=== PATIENT | male | born 1950 | race Caucasian/White ===

== ENCOUNTER 2021-06-30 15:55 | Inpatient (IN) ==
[2021-06-30] MEDS ORDERED: Isovue-370 500 ML BOTTLE IVP ONE (16:56)
[2021-06-30] MEDS ORDERED: 0.9 % Sodium Chloride 1,000 ML IVC ONE (16:57)
[2021-06-30] MEDS ORDERED: Cefepime HCl 2,000 MG in 0.9 % Sodium Chloride 10 ML IVP STA (16:57)
[2021-06-30] MEDS ORDERED: MetroNIDAZOLE 500 MG/100 ML 500 MG/100 ML BAG IVPB ONE (16:58)
[2021-06-30] MEDS ORDERED: Vancomycin 1,250 MG/262.5 ML IV.SOLN IVPB ONE (16:58)
[2021-06-30 17:20] LABS: Hematocrit 41.6 % (37.5-50.1); Hemoglobin 14.5 g/dL (12.9-16.9); Mean Corpuscular HGB Conc 34.9 g/dL (31.6-35.5); Mean Corpuscular Hemoglobin 30.3 pg (28.0-33.3); Mean Platelet Volume 9.3 fL (9.4-12.4); Platelet Count 267 K/mcL (140-400); Red Blood Count 4.78 M/mcL (4.19-5.50); Red Cell Distribution Width 11.8 % (11.5-14.5); White Blood Count 20.1 K/mcL (4.3-11.1)
[2021-06-30] MEDS ORDERED: Ondansetron 4 MG/2 ML VIAL IVP ONE (17:25)
[2021-06-30] MEDS ORDERED: *HR* HYDROmorphone (PF) 1 MG/ML SYRINGE IVP STA (17:25)
[2021-06-30 17:40] LABS: Alanine Aminotransferase 19 Units/L (7-52); Albumin 3.6 g/dL (3.5-5.7); Alkaline Phosphatase 108 Units/L (34-104); Aspartate Amino Transferase 16 Units/L (13-39); BUN/Creatinine Ratio 20 (6-26); Bilirubin,Direct 0.7 mg/dL (0.0-0.2); Bilirubin,Indirect 1.2 mg/dL (0.0-1.0); Bilirubin,Total 1.9 mg/dL (0.3-1.0); Blood Urea Nitrogen 17 mg/dL (8-23); Calcium 9.4 mg/dL (8.6-10.3); Carbon Dioxide 25 mEq/L (23-29); Chloride 94 mEq/L (98-107); Globulin 3.7 g/dL (2.4-3.5); Glucose 267 mg/dL (70-105); Osmolality,Calculated 283 (280-300); Potassium 3.6 mEq/L (3.5-5.1); Sodium 131 mEq/L (136-145); Total Protein 7.3 g/dL (6.4-8.9); eGFR For African Americans > 60 (> 60); eGFR For Non-African Americans > 60 (> 60)
[2021-06-30] MEDS ORDERED: Ondansetron ODT 4 MG TAB.RAPDIS SL PRN (19:41)
[2021-06-30] MEDS ORDERED: Acetaminophen 325 MG TABLET PO PRN (19:41)
[2021-06-30] MEDS ORDERED: Naloxone 0.4 MG/ML INJ IVP PRN (19:41)
[2021-06-30] MEDS ORDERED: Melatonin 3 MG TABLET PO PRN (19:41)
[2021-06-30] MEDS ORDERED: D5% in Water 1,000 ML IVC PRN (20:07)
[2021-06-30] MEDS ORDERED: *HR* Dextrose 50 % in Water (Syg) 50 ML SYRINGE IVP PRN (20:07)
[2021-06-30] MEDS ORDERED: Dextrose Gel 15 GM/37.5 ML TUBE PO PRN ×2 (20:07)
[2021-06-30 20:28] LABS: Estimated Average Glucose 194 mg/dl; Hemoglobin A1C 8.4 %
[2021-07-01] MEDS: MetroNIDAZOLE 500 MG/100 ML 500 MG/100 ML BAG IVPB SCH ×5 (00:41→23:53)
[2021-07-01] MEDS: Insulin LISPRO 300 UNITS/3 ML VIAL SUBQ SCH ×5 (00:42→23:54)
[2021-07-01] MEDS: Vancomycin 1,250 MG/262.5 ML IV.SOLN IVPB SCH ×2 (04:33→18:33)
[2021-07-01] MEDS: Cefepime HCl 2,000 MG in 0.9 % Sodium Chloride 10 ML IVP SCH ×3 (04:34→17:29)
[2021-07-01 05:26] LABS: Basophils % 0.2 %; Eosinophils % 0.2 %; Hematocrit 35.2 % (37.5-50.1); Immature Granulocytes % 0.9 % (0-4); Lymphocytes # 1.4 K/mcL (0.6-4.6); Lymphocytes % 8.4 %; Mean Corpuscular HGB Conc 35.8 g/dL (31.6-35.5); Mean Corpuscular Hemoglobin 31.3 pg (28.0-33.3); Mean Corpuscular Volume 87.6 fL (83.0-100.0); Mean Platelet Volume 9.6 fL (9.4-12.4); Monocytes # 1.8 K/mcL (0.0-1.3); Monocytes % 10.7 %; Neutrophils # 13.5 K/mcL (1.6-8.9); Platelet Count 233 K/mcL (140-400); Red Blood Count 4.02 M/mcL (4.19-5.50); Red Cell Distribution Width 11.9 % (11.5-14.5); Segmented Neutrophils % 79.6 %
[2021-07-01 05:28] LABS: Hemoglobin 12.6 g/dL (12.9-16.9)
[2021-07-01 05:34] LABS: INR 1.7; Prothrombin Time 18.9 Seconds (9.4-12.1)
[2021-07-01 05:48] LABS: BUN/Creatinine Ratio 19 (6-26); Blood Urea Nitrogen 16 mg/dL (8-23); Calcium 8.5 mg/dL (8.6-10.3); Carbon Dioxide 25 mEq/L (23-29); Chloride 101 mEq/L (98-107); Glucose 206 mg/dL (70-105); Osmolality,Calculated 285 (280-300); Potassium 3.6 mEq/L (3.5-5.1); Sodium 134 mEq/L (136-145); eGFR For African Americans > 60 (> 60); eGFR For Non-African Americans > 60 (> 60)
[2021-07-01 05:52] LABS: Albumin 3.1 g/dL (3.5-5.7); Bilirubin,Direct 0.6 mg/dL (0.0-0.2); Bilirubin,Indirect 0.8 mg/dL (0.0-1.0); Bilirubin,Total 1.4 mg/dL (0.3-1.0); Total Protein 6.1 g/dL (6.4-8.9)
[2021-07-01] MEDS ORDERED: Lidocaine -MPF 2% 5 ML VIAL ONE (14:08)
[2021-07-01] MEDS ORDERED: *HR* Midazolam HCl 2 MG/2 ML VIAL ONE (14:08)
[2021-07-01] MEDS ORDERED: Clindamycin 900 MG/50 ML 900 MG/50 ML IV.SOLN IVPB ONE (14:12)
[2021-07-01] MEDS ORDERED: *HR* HYDROmorphone PF 0.5 MG/0.5 ML SYRINGE IVP PRN (14:24)
[2021-07-01] MEDS ORDERED: Ondansetron 4 MG/2 ML VIAL ONE (14:55)
[2021-07-01] MEDS: *HR* Heparin 5,000 UNIT/ML VIAL SQ SCH (17:29)
[2021-07-01] MEDS: Ringers Solution, Lactated 1,000 ML IVC SCH (19:09)
[2021-07-02] MEDS: Cefepime HCl 2,000 MG in 0.9 % Sodium Chloride 10 ML IVP SCH ×4 (04:01→23:01)
[2021-07-02] MEDS: MetroNIDAZOLE 500 MG/100 ML 500 MG/100 ML BAG IVPB SCH ×4 (04:02→23:00)
[2021-07-02 06:19] LABS: Basophils # 0.1 K/mcL (0.0-0.2); Basophils % 0.4 %; Eosinophils # 0.1 K/mcL (0.0-0.6); Eosinophils % 0.7 %; Hematocrit 35.5 % (37.5-50.1); Hemoglobin 12.5 g/dL (12.9-16.9); Immature Granulocytes % 1.3 % (0-4); Lymphocytes # 1.5 K/mcL (0.6-4.6); Lymphocytes % 9.1 %; Mean Corpuscular HGB Conc 35.2 g/dL (31.6-35.5); Mean Corpuscular Hemoglobin 31.3 pg (28.0-33.3); Mean Platelet Volume 9.6 fL (9.4-12.4); Monocytes # 1.5 K/mcL (0.0-1.3); Monocytes % 9.4 %; Neutrophils # 12.9 K/mcL (1.6-8.9); Platelet Count 253 K/mcL (140-400); Red Blood Count 3.99 M/mcL (4.19-5.50); Red Cell Distribution Width 11.9 % (11.5-14.5); Segmented Neutrophils % 79.1 %; White Blood Count 16.3 K/mcL (4.3-11.1)
[2021-07-02] MEDS: Insulin LISPRO 300 UNITS/3 ML VIAL SUBQ SCH ×4 (06:29→21:51)
[2021-07-02] MEDS: *HR* Heparin 5,000 UNIT/ML VIAL SQ SCH ×2 (06:29→16:54)
[2021-07-02] MEDS: Vancomycin 1,250 MG/262.5 ML IV.SOLN IVPB SCH (06:30)
[2021-07-02 06:31] LABS: BUN/Creatinine Ratio 19 (6-26); Blood Urea Nitrogen 17 mg/dL (8-23); Calcium 8.3 mg/dL (8.6-10.3); Carbon Dioxide 25 mEq/L (23-29); Chloride 100 mEq/L (98-107); Glucose 196 mg/dL (70-105); Osmolality,Calculated 287 (280-300); Phosphorous 2.9 mg/dL (2.7-4.5); Potassium 3.4 mEq/L (3.5-5.1); Sodium 135 mEq/L (136-145); eGFR For African Americans > 60 (> 60); eGFR For Non-African Americans > 60 (> 60)
[2021-07-02] MEDS: Ringers Solution, Lactated 1,000 ML IVC SCH (09:39)
[2021-07-02] MEDS: Vancomycin 1,500 MG/265 ML IV.SOLN IVPB SCH (16:53)
[2021-07-03 03:02] LABS: Basophils # 0.1 K/mcL (0.0-0.2); Basophils % 0.5 %; Eosinophils # 0.2 K/mcL (0.0-0.6); Eosinophils % 1.7 %; Hematocrit 34.7 % (37.5-50.1); Immature Granulocytes % 1.6 % (0-4); Lymphocytes # 1.5 K/mcL (0.6-4.6); Lymphocytes % 13.1 %; Mean Corpuscular HGB Conc 34.6 g/dL (31.6-35.5); Mean Corpuscular Hemoglobin 30.8 pg (28.0-33.3); Mean Corpuscular Volume 89.2 fL (83.0-100.0); Mean Platelet Volume 9.3 fL (9.4-12.4); Monocytes % 8.7 %; Neutrophils # 8.2 K/mcL (1.6-8.9); Platelet Count 224 K/mcL (140-400); Red Blood Count 3.89 M/mcL (4.19-5.50); Red Cell Distribution Width 12.1 % (11.5-14.5); Segmented Neutrophils % 74.4 %
[2021-07-03 03:18] LABS: BUN/Creatinine Ratio 25 (6-26); Blood Urea Nitrogen 16 mg/dL (8-23); Calcium 8.3 mg/dL (8.6-10.3); Carbon Dioxide 23 mEq/L (23-29); Chloride 104 mEq/L (98-107); Glucose 177 mg/dL (70-105); Magnesium 2.1 mg/dL (1.6-2.6); Osmolality,Calculated 286 (280-300); Potassium 3.6 mEq/L (3.5-5.1); Sodium 135 mEq/L (136-145); eGFR For African Americans > 60 (> 60); eGFR For Non-African Americans > 60 (> 60)
[2021-07-03] MEDS: *HR* Heparin 5,000 UNIT/ML VIAL SQ SCH ×2 (05:05→16:59)
[2021-07-03] MEDS: MetroNIDAZOLE 500 MG/100 ML 500 MG/100 ML BAG IVPB SCH ×2 (05:05→11:00)
[2021-07-03] MEDS: Insulin LISPRO 300 UNITS/3 ML VIAL SUBQ SCH ×4 (05:06→16:59)
[2021-07-03] MEDS: Vancomycin 1,500 MG/265 ML IV.SOLN IVPB SCH (06:32)
[2021-07-03] MEDS: lisinopriL 20 MG TABLET PO SCH (11:00)
[2021-07-03] MEDS: Cefepime HCl 2,000 MG in 0.9 % Sodium Chloride 10 ML IVP SCH ×2 (11:01→18:27)
[2021-07-03] MEDS: metroNIDAZOLE 500 MG TABLET PO SCH ×2 (15:28→19:49)
[2021-07-03] MEDS: Ringers Solution, Lactated 1,000 ML IVC SCH (15:29)
[2021-07-04] MEDS: Cefepime HCl 2,000 MG in 0.9 % Sodium Chloride 10 ML IVP SCH ×3 (03:05→18:54)
[2021-07-04] MEDS: *HR* Heparin 5,000 UNIT/ML VIAL SQ SCH ×2 (04:52→16:43)
[2021-07-04] MEDS: metroNIDAZOLE 500 MG TABLET PO SCH ×3 (07:51→21:56)
[2021-07-04] MEDS: lisinopriL 20 MG TABLET PO SCH (07:51)
[2021-07-04] MEDS: Insulin LISPRO 300 UNITS/3 ML VIAL SUBQ SCH ×3 (07:52→16:43)
[2021-07-04] MEDS: Ringers Solution, Lactated 1,000 ML IVC SCH (12:35)
[2021-07-05 00:57] LABS: Basophils # 0.1 K/mcL (0.0-0.2); Basophils % 0.6 %; Eosinophils # 0.2 K/mcL (0.0-0.6); Eosinophils % 1.8 %; Hematocrit 36.3 % (37.5-50.1); Hemoglobin 12.7 g/dL (12.9-16.9); Immature Granulocytes % 2.3 % (0-4); Lymphocytes # 1.9 K/mcL (0.6-4.6); Lymphocytes % 17.1 %; Mean Corpuscular Hemoglobin 30.8 pg (28.0-33.3); Mean Corpuscular Volume 88.1 fL (83.0-100.0); Mean Platelet Volume 9.1 fL (9.4-12.4); Monocytes % 8.8 %; Neutrophils # 7.7 K/mcL (1.6-8.9); Platelet Count 271 K/mcL (140-400); Red Blood Count 4.12 M/mcL (4.19-5.50); Red Cell Distribution Width 11.9 % (11.5-14.5); Segmented Neutrophils % 69.4 %; White Blood Count 11.1 K/mcL (4.3-11.1)
[2021-07-05 01:15] LABS: BUN/Creatinine Ratio 23 (6-26); Blood Urea Nitrogen 19 mg/dL (8-23); Calcium 8.4 mg/dL (8.6-10.3); Carbon Dioxide 29 mEq/L (23-29); Chloride 101 mEq/L (98-107); Glucose 255 mg/dL (70-105); Magnesium 2.2 mg/dL (1.6-2.6); Osmolality,Calculated 291 (280-300); Phosphorous 2.7 mg/dL (2.7-4.5); Potassium 4.3 mEq/L (3.5-5.1); Sodium 135 mEq/L (136-145); eGFR For African Americans > 60 (> 60); eGFR For Non-African Americans > 60 (> 60)
[2021-07-05] MEDS: Cefepime HCl 2,000 MG in 0.9 % Sodium Chloride 10 ML IVP SCH ×3 (02:41→19:39)
[2021-07-05] MEDS: Ringers Solution, Lactated 1,000 ML IVC SCH ×3 (02:52→22:37)
[2021-07-05] MEDS: *HR* Heparin 5,000 UNIT/ML VIAL SQ SCH ×2 (05:57→16:50)
[2021-07-05] MEDS ORDERED: Insulin LISPRO 300 UNITS/3 ML VIAL SUBQ SCH ×2 (09:00→15:00)
[2021-07-05] MEDS: metroNIDAZOLE 500 MG TABLET PO SCH ×3 (09:40→19:40)
[2021-07-05] MEDS: lisinopriL 20 MG TABLET PO SCH (09:40)
[2021-07-05] MEDS: Insulin LISPRO 300 UNITS/3 ML VIAL SUBQ SCH ×2 (09:44→16:49)
[2021-07-05] MEDS ORDERED: Ondansetron 4 MG/2 ML VIAL IVP PRN ×2 (10:33→13:20)
[2021-07-05] MEDS ORDERED: *HR* OxyCODONE Immed Rel 5 MG TABLET PO PRN ×2 (10:33→13:20)
[2021-07-05] MEDS ORDERED: *HR* HYDROmorphone PF 0.5 MG/0.5 ML SYRINGE IVP PRN ×2 (10:33→13:20)
[2021-07-05] MEDS ORDERED: *HR* Succinylcholine 200 MG/10 ML VIAL IVP ONE (11:06)
[2021-07-05] MEDS ORDERED: *HR* Propofol 200 MG/20 ML VIAL IVP ONE (11:06)
[2021-07-05] MEDS ORDERED: Lidocaine -MPF 2% 5 ML VIAL ONE ×2 (11:06)
[2021-07-05] MEDS ORDERED: Ondansetron 4 MG/2 ML VIAL ONE (11:08)
[2021-07-05] MEDS ORDERED: Bupivacaine-MPF 0.25% 10 ML VIAL ONE (11:12)
[2021-07-05] MEDS ORDERED: *HR* Dextrose 50 % in Water (Syg) 50 ML SYRINGE IVP PRN (13:20)
[2021-07-05] MEDS ORDERED: Acetaminophen 325 MG TABLET PO PRN (13:20)
[2021-07-05] MEDS ORDERED: Dextrose Gel 15 GM/37.5 ML TUBE PO PRN ×2 (13:20)
[2021-07-05] MEDS ORDERED: Ondansetron ODT 4 MG TAB.RAPDIS SL PRN (13:20)
[2021-07-05] MEDS ORDERED: Melatonin 3 MG TABLET PO PRN (13:20)
[2021-07-05] MEDS ORDERED: Naloxone 0.4 MG/ML INJ IVP PRN (13:20)
[2021-07-05] MEDS ORDERED: D5% in Water 1,000 ML IVC PRN (13:20)
[2021-07-06 01:39] LABS: Basophils # 0.1 K/mcL (0.0-0.2); Basophils % 0.5 %; Eosinophils # 0.1 K/mcL (0.0-0.6); Hematocrit 35.8 % (37.5-50.1); Hemoglobin 12.5 g/dL (12.9-16.9); Immature Granulocytes % 1.2 % (0-4); Lymphocytes # 1.5 K/mcL (0.6-4.6); Mean Corpuscular HGB Conc 34.9 g/dL (31.6-35.5); Mean Corpuscular Hemoglobin 30.8 pg (28.0-33.3); Mean Corpuscular Volume 88.2 fL (83.0-100.0); Monocytes # 1.2 K/mcL (0.0-1.3); Monocytes % 8.8 %; Neutrophils # 10.7 K/mcL (1.6-8.9); Platelet Count 260 K/mcL (140-400); Red Blood Count 4.06 M/mcL (4.19-5.50); Segmented Neutrophils % 77.5 %; White Blood Count 13.9 K/mcL (4.3-11.1)
[2021-07-06 01:55] LABS: BUN/Creatinine Ratio 21 (6-26); Blood Urea Nitrogen 15 mg/dL (8-23); Calcium 8.1 mg/dL (8.6-10.3); Carbon Dioxide 25 mEq/L (23-29); Chloride 102 mEq/L (98-107); Glucose 231 mg/dL (70-105); Osmolality,Calculated 286 (280-300); Phosphorous 2.9 mg/dL (2.7-4.5); Potassium 3.8 mEq/L (3.5-5.1); Sodium 134 mEq/L (136-145); eGFR For African Americans > 60 (> 60); eGFR For Non-African Americans > 60 (> 60)
[2021-07-06] MEDS: Cefepime HCl 2,000 MG in 0.9 % Sodium Chloride 10 ML IVP SCH ×3 (02:46→20:59)
[2021-07-06] MEDS: *HR* Heparin 5,000 UNIT/ML VIAL SQ SCH ×2 (05:09→17:11)
[2021-07-06] MEDS: Insulin LISPRO 300 UNITS/3 ML VIAL SUBQ SCH ×3 (08:50→17:11)
[2021-07-06] MEDS: lisinopriL 20 MG TABLET PO SCH (08:53)
[2021-07-06] MEDS: metroNIDAZOLE 500 MG TABLET PO SCH ×3 (08:53→20:59)
[2021-07-07 02:18] LABS: Basophils # 0.1 K/mcL (0.0-0.2); Basophils % 0.6 %; Eosinophils # 0.2 K/mcL (0.0-0.6); Eosinophils % 1.6 %; Hematocrit 34.4 % (37.5-50.1); Hemoglobin 12.1 g/dL (12.9-16.9); Immature Granulocytes % 1.3 % (0-4); Lymphocytes # 2.1 K/mcL (0.6-4.6); Lymphocytes % 19.9 %; Mean Corpuscular HGB Conc 35.2 g/dL (31.6-35.5); Mean Corpuscular Hemoglobin 30.9 pg (28.0-33.3); Mean Corpuscular Volume 87.8 fL (83.0-100.0); Mean Platelet Volume 9.3 fL (9.4-12.4); Monocytes # 0.9 K/mcL (0.0-1.3); Monocytes % 8.2 %; Neutrophils # 7.1 K/mcL (1.6-8.9); Platelet Count 258 K/mcL (140-400); Red Blood Count 3.92 M/mcL (4.19-5.50); Red Cell Distribution Width 12.1 % (11.5-14.5); Segmented Neutrophils % 68.4 %; White Blood Count 10.3 K/mcL (4.3-11.1)
[2021-07-07 02:40] LABS: BUN/Creatinine Ratio 21 (6-26); Blood Urea Nitrogen 15 mg/dL (8-23); Calcium 8.4 mg/dL (8.6-10.3); Carbon Dioxide 29 mEq/L (23-29); Chloride 101 mEq/L (98-107); Glucose 220 mg/dL (70-105); Magnesium 2.2 mg/dL (1.6-2.6); Osmolality,Calculated 290 (280-300); Potassium 3.9 mEq/L (3.5-5.1); Sodium 136 mEq/L (136-145); eGFR For African Americans > 60 (> 60); eGFR For Non-African Americans > 60 (> 60)
[2021-07-07] MEDS: Cefepime HCl 2,000 MG in 0.9 % Sodium Chloride 10 ML IVP SCH ×3 (05:14→17:48)
[2021-07-07] MEDS: *HR* Heparin 5,000 UNIT/ML VIAL SQ SCH ×2 (05:15→16:17)
[2021-07-07] MEDS: metroNIDAZOLE 500 MG TABLET PO SCH ×3 (08:17→19:38)
[2021-07-07] MEDS: lisinopriL 20 MG TABLET PO SCH (08:17)
[2021-07-07] MEDS: Insulin LISPRO 300 UNITS/3 ML VIAL SUBQ SCH ×3 (08:18→16:17)
[2021-07-07] MEDS: Ringers Solution, Lactated 1,000 ML IVC SCH (12:32)
[2021-07-08 01:29] LABS: Basophils # 0.1 K/mcL (0.0-0.2); Basophils % 0.6 %; Eosinophils # 0.2 K/mcL (0.0-0.6); Eosinophils % 1.4 %; Hematocrit 33.8 % (37.5-50.1); Hemoglobin 11.9 g/dL (12.9-16.9); Immature Granulocytes % 1.1 % (0-4); Lymphocytes # 2.3 K/mcL (0.6-4.6); Lymphocytes % 18.3 %; Mean Corpuscular HGB Conc 35.2 g/dL (31.6-35.5); Mean Corpuscular Hemoglobin 31.2 pg (28.0-33.3); Mean Corpuscular Volume 88.7 fL (83.0-100.0); Mean Platelet Volume 9.3 fL (9.4-12.4); Monocytes # 0.9 K/mcL (0.0-1.3); Monocytes % 7.1 %; Neutrophils # 8.8 K/mcL (1.6-8.9); Platelet Count 272 K/mcL (140-400); Red Blood Count 3.81 M/mcL (4.19-5.50); Red Cell Distribution Width 12.1 % (11.5-14.5); Segmented Neutrophils % 71.5 %; White Blood Count 12.3 K/mcL (4.3-11.1)
[2021-07-08 01:53] LABS: BUN/Creatinine Ratio 25 (6-26); Blood Urea Nitrogen 17 mg/dL (8-23); Calcium 8.4 mg/dL (8.6-10.3); Carbon Dioxide 27 mEq/L (23-29); Chloride 101 mEq/L (98-107); Glucose 194 mg/dL (70-105); Magnesium 2.1 mg/dL (1.6-2.6); Osmolality,Calculated 289 (280-300); Phosphorous 3.1 mg/dL (2.7-4.5); Potassium 4.1 mEq/L (3.5-5.1); Sodium 136 mEq/L (136-145); eGFR For African Americans > 60 (> 60); eGFR For Non-African Americans > 60 (> 60)
[2021-07-08] MEDS: Cefepime HCl 2,000 MG in 0.9 % Sodium Chloride 10 ML IVP SCH ×3 (04:25→17:54)
[2021-07-08] MEDS: *HR* Heparin 5,000 UNIT/ML VIAL SQ SCH ×2 (04:25→17:55)
[2021-07-08] MEDS ORDERED: ceFAZolin 1,000 MG, Sodium Chloride IRRigation 1,000 ML IR ONE ×2 (07:30→13:42)
[2021-07-08] MEDS: metroNIDAZOLE 500 MG TABLET PO SCH ×3 (07:55→21:47)
[2021-07-08] MEDS: Insulin LISPRO 300 UNITS/3 ML VIAL SUBQ SCH ×3 (07:55→17:54)
[2021-07-08] MEDS: lisinopriL 20 MG TABLET PO SCH (07:55)
[2021-07-08] MEDS ORDERED: *HR* Propofol 200 MG/20 ML VIAL IVP ONE (08:20)
[2021-07-08] MEDS ORDERED: *HR* FentaNYL (PF) 100 MCG/2 ML VIAL ONE (08:21)
[2021-07-08] MEDS ORDERED: Lidocaine HCL 4 ML Topical Solution (Laryng-O-Jet Kit Sterile Pak) TP ONE (08:37)
[2021-07-08] MEDS ORDERED: Ondansetron 4 MG/2 ML VIAL ONE (08:37)
[2021-07-08] MEDS ORDERED: *HR* Rocuronium Bromide 50 MG/5 ML VIAL ONE (08:37)
[2021-07-08] MEDS ORDERED: Lidocaine -MPF 2% 5 ML VIAL ONE (08:37)
[2021-07-08] MEDS ORDERED: Albumin Human 5% 12.5 GM/250 ML IV.SOLN ONE (10:07)
[2021-07-08] MEDS ORDERED: *HR* HYDROMORPHONE 2 MG/ML VIAL ONE (11:37)
[2021-07-08] MEDS ORDERED: Sugammadex Sodium 200 MG/2 ML VIAL IV ONE (12:03)
[2021-07-08] MEDS: *HR* HYDROmorphone PF 0.5 MG/0.5 ML SYRINGE IVP PRN ×2 (12:57→13:03)
[2021-07-08] MEDS ORDERED: *HR* HYDROmorphone PF 0.5 MG/0.5 ML SYRINGE IVP PRN (13:21)
[2021-07-08] MEDS ORDERED: Ondansetron ODT 4 MG TAB.RAPDIS SL PRN (13:42)
[2021-07-08] MEDS ORDERED: Naloxone 0.4 MG/ML INJ IVP PRN (13:42)
[2021-07-08] MEDS ORDERED: Acetaminophen 325 MG TABLET PO PRN (13:42)
[2021-07-08] MEDS ORDERED: *HR* Dextrose 50 % in Water (Syg) 50 ML SYRINGE IVP PRN (13:42)
[2021-07-08] MEDS ORDERED: D5% in Water 1,000 ML IVC PRN (13:42)
[2021-07-08] MEDS ORDERED: Melatonin 3 MG TABLET PO PRN (13:42)
[2021-07-08] MEDS ORDERED: Dextrose Gel 15 GM/37.5 ML TUBE PO PRN ×2 (13:42)
[2021-07-08] MEDS: Ringers Solution, Lactated 1,000 ML IVC SCH ×2 (14:00→14:14)
[2021-07-09 04:18] LABS: Basophils % 0.3 %; Eosinophils % 0.1 %; Hematocrit 32.9 % (37.5-50.1); Hemoglobin 11.3 g/dL (12.9-16.9); Immature Granulocytes % 0.8 % (0-4); Lymphocytes # 1.7 K/mcL (0.6-4.6); Lymphocytes % 11.6 %; Mean Corpuscular HGB Conc 34.3 g/dL (31.6-35.5); Mean Corpuscular Hemoglobin 30.9 pg (28.0-33.3); Mean Corpuscular Volume 89.9 fL (83.0-100.0); Mean Platelet Volume 9.5 fL (9.4-12.4); Neutrophils # 11.7 K/mcL (1.6-8.9); Platelet Count 288 K/mcL (140-400); Red Blood Count 3.66 M/mcL (4.19-5.50); Red Cell Distribution Width 12.3 % (11.5-14.5); Segmented Neutrophils % 80.2 %; White Blood Count 14.6 K/mcL (4.3-11.1)
[2021-07-09 04:34] LABS: BUN/Creatinine Ratio 20 (6-26); Blood Urea Nitrogen 20 mg/dL (8-23); Calcium 8.7 mg/dL (8.6-10.3); Carbon Dioxide 29 mEq/L (23-29); Chloride 99 mEq/L (98-107); Glucose 253 mg/dL (70-105); Magnesium 2.1 mg/dL (1.6-2.6); Osmolality,Calculated 289 (280-300); Phosphorous 2.9 mg/dL (2.7-4.5); Potassium 3.9 mEq/L (3.5-5.1); Sodium 134 mEq/L (136-145); eGFR For African Americans > 60 (> 60); eGFR For Non-African Americans > 60 (> 60)
[2021-07-09] MEDS: Cefepime HCl 2,000 MG in 0.9 % Sodium Chloride 10 ML IVP SCH (05:17)
[2021-07-09] MEDS: *HR* Heparin 5,000 UNIT/ML VIAL SQ SCH ×2 (05:17→17:20)
[2021-07-09] MEDS: Insulin LISPRO 300 UNITS/3 ML VIAL SUBQ SCH ×3 (07:48→17:21)
[2021-07-09] MEDS: Ringers Solution, Lactated 1,000 ML IVC SCH (07:51)
[2021-07-09] MEDS ORDERED: lisinopriL 20 MG TABLET PO SCH (09:00)
[2021-07-09 15:01] LABS: Influenza A PCR Negative (Negative); Influenza B PCR Negative (Negative); Resp. Syncytial Virus PCR Negative (Negative)
[2021-07-09 15:03] LABS: SARS-CoV-2 by PCR (In House) Negative (Negative)
[2021-07-09 15:19] VITALS: BP 107/56; PULSE 81; TEMP 98.4; O2SAT 97
== END 2021-07-09 17:52 | DRG 853 ==
LOC: EMEROOARM 15:55 → 3BNU 15:55 → SUATTDRO 19:35 → 3BNU 20:00
PROVIDERS: ADMIT Internal Medicine; ATTEND Internal Medicine